=== PATIENT | male | born 1995 | race Caucasian/White ===

== ENCOUNTER 2016-07-18 07:25 | Day surgery (SDC) | payer OTHER ==
[2016-07-18] VITALS (9 sets, daily range): BP systolic 101–124; BP diastolic 53–72; PULSE 59–71; RESP 16–75; Ht 193 cm; Wt 67.6 kg
[~2016-07-18] VITALS: Ht 193 cm; Wt 67.6 kg
[2016-07-18] MEDS ORDERED: CEFAZOLIN 1 GM/50 ML (PMX) 50 ML IVPB SCH (07:30)
[2016-07-18] MEDS ORDERED: LACTATED RINGER'S 1,000 ML IV SCH (07:30)
[2016-07-18] MEDS ORDERED: DEXAMETHASONE 4 MG/ML 1 ML INJ ONE (08:59)
[2016-07-18] MEDS ORDERED: BUPIVACAINE 0.5% (SDV) 30 ML INJ ONE (08:59)
--- NOTE | 2016-07-18 09:29 | HPN ---
Date/Time of Note Date/Time of Note DATE: 07/18/16 TIME: 09:29 Interval H&P Admission Note Pt. seen H&P reviewed: No system changes RITESH BRENNER DPM Jul 18, 2016 09:29
[2016-07-18] MEDS ORDERED: MIDAZOLAM 1 MG/ML 2 ML INJ ONE ×2 (09:35→10:20)
[2016-07-18] MEDS ORDERED: FENTAnyl 50 MCG/ML VIAL ONE ×2 (09:35→10:29)
[2016-07-18] MEDS ORDERED: PROPOFOL 20 ML ONE (09:35)
[2016-07-18] MEDS ORDERED: CLINDAMYCIN 600 MG/D5W (PMX) 50 ML IVPB ONE (10:17)
[2016-07-18] MEDS ORDERED: BACITRACIN 50000 UNITS INJ ONE (10:21)
[2016-07-18] MEDS ORDERED: DIPHENHYDRAMINE 50 MG INJ IV PRN (11:00)
[2016-07-18] MEDS ORDERED: MEPERIDINE 25 MG INJ IV PRN (11:00)
[2016-07-18] MEDS ORDERED: METOCLOPRAMIDE 10 MG INJ IV PRN (11:00)
[2016-07-18] MEDS ORDERED: ONDANSETRON 4 MG INJ IV PRN (11:00)
[2016-07-18] MEDS ORDERED: FENTAnyl 50 MCG/ML VIAL IV PRN ×2 (11:00)
[2016-07-18] MEDS ORDERED: MIDAZOLAM 1 MG/ML 2 ML INJ IV PRN (11:00)
[2016-07-18] MEDS ORDERED: morphine (1 MG/ML) 10ML SYRINGE IV PRN ×2 (11:00)
[2016-07-18] MEDS ORDERED: ONDANSETRON (ODT) 4 MG TAB ODT PRN (11:30)
[2016-07-18] MEDS ORDERED: HYDROCODONE/APAP (10/325) TAB PO PRN (11:30)
--- NOTE | 2016-07-18 11:31 | OPR ---
DATE OF OPERATION: 07/18/2016 SURGEON: Ritesh Miranda MD PREOPERATIVE DIAGNOSIS: Hallux abductovalgus with associated bunion deformity of the left foot. POSTOPERATIVE DIAGNOSIS: Hallux abductovalgus with associated bunion deformity of the left foot. ANESTHESIA: MAC with local. OPERATION: The patient was brought into the OR and approximately 10 mL of 0.5% plain Marcaine was u tilized circumferentially around the first metatarsophalangeal joint region of the left foot. A marcell rniquet was applied around the ankle. The foot and ankle were exsanguinated. The tourniquet was in flated to approximately 250 mmHg after the area had been prepped and draped in the usual sterile fas hion. Attention was directed to the dorsal medial aspect of the first metatarsophalangeal joint reg ion of the left foot. Utilizing a #15 blade, an approximately 5 cm incision was performed. Sharp a nd blunt dissection were achieved. Bleeding vessels were ligated. Nervous tissue was retracted. T he capsular tissue was in clear view. A linear capsulotomy was performed. Redundant capsular tissu e was then moved dorsally and plantarly, and the bunion deformity was in clear view. The bunion def ormity was removed with a sagittal saw. Attention was then redirected over the dorsal aspect and th e lateral aspect where a classical lateral capsulotomy was performed. Attention was then once again directed back to the medial aspect. Utilizing a sagittal saw, a modified [employer] osteotomy was per formed. The capital fragment was moved laterally and impacted onto the remaining bone stalk. A 0.0 45 K-wire was then driven from dorsal to plantar perpendicular to the osteotomy site. Utilizing the 4moms system, the area was countersunk and measured, and it was determined that a 3.0 #12 cannulated screw would be utilized. The screw was inserted and excellent compression was noted in a lignment and approximation. The area was copiously lavaged with antibiotic solution after the raspi ng and smoothing down any remaining stone fragments. There was excellent range of motion, and the a rticular cartilage both in the proximal phalanx and the remaining head was excellent. The redundant capsular tissue was then remodeled, and a V-shaped tissue was removed. 2-0 Vicryl suture was utili zed, and the capsular area was coapted. It should be noted that with screw ____ the normal [facility] protocol was used, drilling, cortical overdrilling, and countersinking. The capsular tissue was coapted with 2-0 Vicryl sutures, subcutaneous tissue with 3-0 Vicryl suture, and the skin with 3 -0 nylon suture. There is excellent range of motion noted. Approximately 10 mL of 0.5% plain Saroj ine was utilized at the end of the case. Also, 1 mL steroid was utilized. In addition, allograft a mnio shield was utilized from [facility] over the capsular tissue to reduce inflammation, reduce the chance of infection, and increase the rate of healing. The dressing of Adaptic, 4x4's, rolled gauze, and Coban was applied. The tourniquet was released. Normoactive hyperemia was noted on the digits of the left foot. This patient tolerated the procedure well and left the OR in stable condit ion. Dictated By: RITESH AGUIAR/SHERIDAN Conf#: [id number] DID#: [id number]
--- NOTE | 2016-07-18 12:37 | RADRPT ---
PROCEDURE: XR Foot. CLINICAL INDICATION: Pain TECHNIQUE: AP, lateral and oblique views of the left foot was obtained. The images were reviewed on a PACS workstation. COMPARISON: None. FINDINGS: A bone anchor is noted in the first metatarsal. There are surrounding postoperative changes includi ng subcutaneous emphysema and an overlying cast. Bone mineralization is within normal limits. Joint spaces are preserved. RPTAT: AA IMPRESSION: Postsurgical changes of the first metatarsal, as above. Foster Garrido Physician Date Time Electronically viewed and signed by Foster Garrido Physician on 07/18/2016 12:36 /
== END 2016-07-18 12:43 | disposition home or self-care (01) ==
LOC: SDS 07:25
PROVIDERS: ATTEND Podiatrist Foot & Ankle Surgery
DX: M21.612 Bunion of left foot (principal); M20.12 Hallux valgus (acquired), left foot
CPT/HCPCS: 28296; 73630; J1100; J2250; J3010